=== PATIENT | male | born 1960 | race American Indian/Alaskan Native ===

== ENCOUNTER 2018-01-26 07:11 | Day surgery (SDC) | payer OTHER ==
[2018-01-26] MEDS ORDERED: NACL 0.9% 100 ML ONE (09:24)
[2018-01-26 09:35] LABS: Blood Urea Nitrogen 17 mg/dL (9-20)
[2018-01-26] MEDS ORDERED: NITROSTAT SL ONE (10:00)
[2018-01-26] MEDS ORDERED: LOPRESSOR IV ONE (10:00)
[2018-01-26] MEDS ORDERED: ATROPINE 0.1% (CARDIAC) ONE (10:15)
[2018-01-26 10:34] VITALS: BP 111/69
--- NOTE | 2018-01-26 13:38 | Cat Scan Report ---
LIMITED CT OF THE CHEST PER CT CORONARY ANGIOGRAPHY PROTOCOL: History: RO7.[address] of the chest per CT coronary angiography protocol is submitted. The cardiac portion of the exam has been previously interpreted by the [employer]ist. The included portions of the lungs appear clear without evidence for nodule, mass or infiltrate. The included pleural spaces are clear. No mediastinal or hilar adenopathy is evident. Included upper abdomen and solid abdominal organs are grossly within normal limits. IMPRESSION: Normal limited CT of the chest as noted.
--- NOTE | 2018-01-28 10:36 | Procedure Note ---
ORDERING PHYSICIAN: Sania Wolff MD INDICATION: Chest pain. FINDINGS: 1. The total coronary artery calcium score using other testings method is 13.11. 2. The percentile for age, gender and race is 29% by CAI criteria. 3. The right coronary artery is a dominant vessel. The sinoatrial artery originates from the RCA. 4. The right coronary artery arises from the aortic cusp. There is no evidence of obstructive coronary artery disease in the proximal and middle segment or the distal segment of the right coronary artery. 5. The left main arises from the left aortic cusp. The left main is angiographically normal. 6. The left anterior descending artery arises from the left main. There is mild diffuse heterogeneous plaque in the proximal LAD. No significant disease is noted throughout the remaining LAD segments. 7. The left circumflex artery arises from the left main. There is no evidence of obstructive disease within the left circumflex artery. The obtuse marginals are small caliber vessels. 8. The ascending aortic dimensions are normal, measuring 2.9 x 3.0 cm. The aortic valve is trileaflet and structurally normal. There is normal pericardial thickness. There is no hiatal hernia. There is normal pulmonary venous anatomy. IMPRESSION: 1. Mild diffuse nonobstructive coronary artery disease noted in the proximal LAD. 2. Normal left ventricular size and systolic function with normal wall motion. Please see radiology overread for noncardiac findings. JOB# [id number]
== END 2018-01-26 10:38 | disposition home or self-care (01) ==
LOC: CATHLABREC 07:11 → EDSTATUS 08:30 → CATHLABREC 10:38
PROVIDERS: ATTEND Internal Medicine
DX: R07.9 Chest pain, unspecified (principal); I10 Essential (primary) hypertension; E78.00 Pure hypercholesterolemia, unspecified; Z87.891 Personal history of nicotine dependence; Z79.899 Other long term (current) drug therapy; Z88.8 Allergy status to other drugs, medicaments and biological substances
CPT/HCPCS: 36415; 75574; 82565; 84520; Q9967; J0461